=== PATIENT | female | born 1965 | race Caucasian/White ===

== ENCOUNTER 2018-05-18 14:56 | Emergency (ER) | payer OTHER, BC ==
[~2018-05-18] VITALS: Ht 162.6 cm; Wt 173.3 kg
[~2018-05-18 14:56] MED LIST: ACETAMINOPHEN500 MG PO; ALBU90OI61 INH; AMLO5 PO; AZIT250 PO; BELPTAB PO; BENZ100A PO; CEPH500 PO; ERYT.5TO RIGHTEYE; FERR325; HYDACE5 PO; IBUP400 PO; IBUP600 PO; Mucinex600 MG PO; ORACON PO; POLTRIOPSO OD; PROACE100 PO; Prinivil10 MG PO; RXCEPH500 PO; RXHYDACE PO; RXPROACE PO; Zestril40 MG PO
[2018-05-18] MEDS ORDERED: Augmentin 875-1 EACH PO (15:37)
== END 2018-05-18 15:49 | disposition home or self-care (01) ==
LOC: ER 14:56
DX: S51.851A Open bite of right forearm, initial encounter (principal); W50.3XXA Accidental bite by another person, initial encounter; Z88.5 Allergy status to narcotic agent; Z79.899 Other long term (current) drug therapy; J45.909 Unspecified asthma, uncomplicated; I10 Essential (primary) hypertension
CPT/HCPCS: 90471; 90714; 99283

== ENCOUNTER 2018-08-22 14:40 | Emergency (ER) | payer BC, SELFPAY ==
[~2018-08-22] VITALS: Ht 160 cm; Wt 182.3 kg
[~2018-08-22 14:40] MED LIST changes: +Augmentin 875-1 EACH PO
[2018-08-22 15:30] LABS: BASOPHILS ABSOLUTE AUTO 0.05 K/mm3 (0.00-0.23); BASOPHILS PERCENT AUTO 0 % (0-2); EOSINOPHILS ABSOLUTE AUTO 0.08 K/mm3 (0.00-0.68); EOSINOPHILS PERCENT AUTO 1 % (0-6); Hematocrit 43.6 % (33.0-51.0); IMMATURE GRAN ABSOLUTE AUTO 0.07 K/mm3 (0.00-0.10); IMMATURE GRAN PERCENT AUTO 1 % (0-1); LYMPHOCYTES ABSOLUTE AUTO 1.96 K/mm3 (0.84-5.20); LYMPHOCYTES PERCENT AUTO 15 % (21-46); MONOCYTES ABSOLUTE AUTO 1.06 K/mm3 (0.16-1.47); MONOCYTES PERCENT AUTO 8 % (4-13); Mean Corpuscular HGB 29.4 pg (26.0-34.0); Mean Corpuscular HGB Conc 32.1 g/dL (31.5-36.5); Mean Corpuscular Volume 92 fL (80-100); Mean Platelet Volume 9.9 fL (9.1-12.4); NEUTROPHILS ABSOLUTE AUTO 9.86 K/mm3 (1.96-9.15); NEUTROPHILS PERCENT AUTO 75 % (41-73); Platelet Count 301 K/mm3 (150-400); RDW Coefficient Variation 13.6 % (11.7-14.2); RDW Standard Deviation 46.1 fL (35.1-46.3); Red Blood Cell Count 4.76 M/mm3 (3.80-5.20); White Blood Cell Count 13.08 K/mm3 (4.00-11.30)
[2018-08-22] MEDS ORDERED: Venlafaxine HCl75 M1 PO (15:45)
[2018-08-22 15:50] LABS: Alanine Aminotransfer (ALT/SGP 44 U/L (12-78); Albumin, Blood 3.6 g/dL (3.4-5.0); Albumin/Globulin Ratio 0.8 (0.8-1.8); Alk Phos 113 U/L (50-136); Anion Gap 6 mmol/L (6-16); Aspartate Aminotrans (AST/SGOT 19 U/L (12-37); Bilirubin, Total 0.5 mg/dL (0.1-1.0); Blood Urea Nitrogen 9 mg/dL (8-24); Bun/Creatinine Ratio 12.4 (12.0-20.0); CO2, Blood 26 mmol/L (21-32); Calcium, Blood 8.7 mg/dL (8.5-10.1); Chloride, Blood 105 mmol/L (98-108); Creatinine, Blood 0.73 mg/dL (0.40-1.00); Globulin, Blood 4.4 g/dL (2.2-4.0); Glomerular Filtration Rate >60 (60-); Glucose, Blood 101 mg/dL (70-99); Potassium, Blood 3.6 mmol/L (3.5-5.5); Sodium, Blood 137 mmol/L (136-145)
[2018-08-22] MEDS ORDERED: PENVK500 PO (17:40)
[2018-08-22] MEDS ORDERED: KETO10 PO (17:40)
== END 2018-08-22 18:10 | disposition home or self-care (01) ==
LOC: ER 14:40
PROVIDERS: Physician Assistant
DX: J03.90 Acute tonsillitis, unspecified (principal); I10 Essential (primary) hypertension; J45.909 Unspecified asthma, uncomplicated; Z79.899 Other long term (current) drug therapy
CPT/HCPCS: 36415; 70491; 80053; 85025; 96365; 96374-59; 96375-59; 96376; 99284-25; J1100; J1885; Q9967

== ENCOUNTER → 2019-10-20 | Outpatient (CLI) | payer BC ==
[~2019-10-20] MED LIST changes: +KETO10 PO; +PENVK500 PO; +Venlafaxine HCl75 M1 PO
== END | disposition home or self-care (01) ==
LOC: LAB SHORT 12:13 → LAB 12:13
DX: N39.0 Urinary tract infection, site not specified (principal)
CPT/HCPCS: 87077; 87086; 87186

== ENCOUNTER → 2023-10-29 | Outpatient (CLI) | payer BC ==
[2023-10-30 16:12] LABS: Source, Urine Clean Catch
[2023-10-30 17:26] LABS: Bacteria Mod /hpf; Red Blood Cells, Urine 0-2 /hpf (0-2); Squamous Epithelial Cells Few /hpf (Few); White Blood Cells, Urine 25-50 /hpf (0-5)
== END ==
LOC: LAB SHORT 15:50 → LAB 15:50
PROVIDERS: Physician Assistant
DX: N39.0 Urinary tract infection, site not specified (principal)
CPT/HCPCS: 81015; 87077; 87086; 87186

== ENCOUNTER 2024-02-16 18:23 | Emergency (ER) | payer BC ==
[~2024-02-16] VITALS: Ht 160 cm; Wt 175.5 kg
[2024-02-16 18:40] VITALS: BP 167/91
[2024-02-16] MEDS ORDERED: Diphth,Pertuss(Acell),Tet Vac 0.5 ML VIAL IM ONE (20:15)
[2024-02-16] MEDS ORDERED: Ketorolac Tromethamine 15mg Vial IM ONE (21:05)
== END 2024-02-16 21:08 | disposition home or self-care (01) ==
LOC: ER 18:23
DX: S01.01XA Laceration without foreign body of scalp, initial encounter (principal); X58.XXXA Exposure to other specified factors, initial encounter; J45.909 Unspecified asthma, uncomplicated; I10 Essential (primary) hypertension; Z79.899 Other long term (current) drug therapy; Z88.5 Allergy status to narcotic agent
CPT/HCPCS: 12002; 90471; 90715; 96372-59; 99282-25; J1885